=== PATIENT | male | born 1990 | race Caucasian/White ===

== ENCOUNTER → 2018-08-30 21:48 | Outpatient (CLI) | payer SELFPAY ==
[2018-08-31 14:37] LABS: Urine N gonorrhoeae NOT DETECTED
[2018-08-31 15:09] LABS: Urine Chlamydia NOT DETECTED
== END ==
PROVIDERS: Visit Provider Physician Assistant
DX: R21 Rash and other nonspecific skin eruption (principal)
CPT/HCPCS: 87491; 87591

== ENCOUNTER → 2018-08-31 10:32 | Outpatient (CLI) | payer SELFPAY ==
[2018-09-04 12:09] LABS: HSV 1 IgM Screen Negative (Negative); HSV 2 IgM Screen Negative (Negative)
== END ==
PROVIDERS: Visit Provider Physician Assistant
DX: R21 Rash and other nonspecific skin eruption (principal)
CPT/HCPCS: 36415; 86694

== ENCOUNTER 2020-10-15 19:52 | Emergency (ER) | payer OTHER, SELFPAY ==
[2020-10-15 20:11] VITALS: BP 142/81; PULSE 76; RESP 16; TEMP 36; O2SAT 97; BMI 25.1
[2020-10-15] MEDS: ERYTHROMYCIN OPHTH 1 GM OINT 1 APPLIC EYE-RIGHT (20:16)
[2020-10-15] MEDS: PROPARACAINE 0.5% OPHTH SOL 1 DROPS EYE-RIGHT (20:17)
--- NOTE | 2020-10-15 20:33 | ED.GENADULT ---
HPI - General Adult General Chief complaint: Eye Problems Stated complaint: something in right eye Time Seen by Provider: 10/15/20 20:09 Source: patient Mode of arrival: Ambulatory Limitations: no limitations History of Present Illness HPI narrative: Patient is an otherwise healthy 30-year-old male here for evaluation which he states is something in his right eye. He was sitting at home when he noticed some irritation in his right eye. He went to look in the mere insult something in his eye. He tried to taken out at home but could not. He does not know what is in his eye. 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 Related Data Allergies Allergy/AdvReac Type Severity Reaction Status Date / Time No Known Drug Allergies Allergy Verified 10/15/20 20:15 Patient History Medical History Bursitis Social History Smoking Status: Never smoker alcohol intake: current Smoking Status: Never smoker alcohol intake frequency: a few times a week Substance Use Type: does not use Exam Initial Vital Signs Initial Vital Signs: Vital Signs Temperature 96.8 F L 10/15/20 20:11 Pulse Rate 76 10/15/20 20:11 Respiratory Rate 16 10/15/20 20:11 Blood Pressure 142/81 H 10/15/20 20:11 Pulse Oximetry 97 10/15/20 20:11 Const General: cooperative, comfortable and well developed Limitations: mental status not altered HENMT Head: normal to inspection and normocephalic Eyes General: appearance normal, both eyes and all related structures Alignment and Position: alignment normal Eyelids: eyelids normal Conjunctivae: conjunctivae normal Sclera: sclerae normal Cornea: corneas abnormal on the right foreign body other (Appears to be a mynor of paint) Pupils: PERRL Resp Effort & Inspection: normal respiratory effort Skin Lesions: no lesions Rashes: no rashes Neuro General: patient alert, patient awake and patient oriented x3 Extrem General: normal to inspection and capillary refill normal Procedures Foreign Body EYE Time Out performed: No Location: eye (R) Topical anesthetic used: proparacaine Foreign body: other Evidence of corneal penetration: No Technique: cotton tip swab and needle Procedure performed under: slit-lamp Post-procedure medication: ophthalmic antibiotic Patient tolerated procedure: well and no complications Course Orders Ordered: Discontinued Medications Erythromycin (Erythromycin Ophth 1 Gm Oint) 1 applic EYE-RIGHT NOW ONE Stop: 10/15/20 20:12 Last Admin: 10/15/20 20:16 Dose: 1 applic Documented by: WANDA Proparacaine HCl (Proparacaine 0.5% Ophth Leela) 1 drops EYE-RIGHT NOW ONE Stop: 10/15/20 20:12 Last Admin: 10/15/20 20:17 Dose: 1 1000units Documented by: WANDA Vital Signs Vital signs: Vital Signs - 8 hr 10/15/20 20:11 Temperature 96.8 F L Pulse Rate 76 Respiratory Rate 16 Blood Pressure 142/81 H Pulse Oximetry 97 Medical Decision Making MDM Narrative Medical decision making narrative: The foreign body was easily visualized that the 9 o'clock position of the right eye. Initial attempt with a content applicator was unable to remove it. I then used a slit lamp and a needle however the foreign body was not adhered to the cornea. It was then easily removed with a moistened cotton tip applicator under visualization of the slit lamp. There are no signs of corneal abrasions afterwards. He was placed on antibiotic ointment. He is given return precautions and follow-up instructions. He expressed understanding and agreement. Discharge Plan Departure Patient Disposition: Home Clinical Impression: Foreign body in eye Qualifiers: Encounter type: initial encounter Laterality: right Qualified Code(s): T15.91XA - Foreign body on external eye, part unspecified, right eye, initial encounter Instructions: DI for Corneal Foreign Body-Eye Activity Restrictions/Additional Instructions: Use the antibiotic ointment 1 more time this evening and 3 times tomorrow like we discussed. Return to the emergency department for any new or worsening symptoms Referrals: Miscellaneous,DoctorMD [Primary Care Provider] -
== END 2020-10-15 20:51 | disposition home or self-care (01) ==
PROVIDERS: Emergency Provider Emergency Medicine
DX: T15.91XA Foreign body on external eye, part unspecified, right eye, initial encounter (principal)
CPT/HCPCS: 65205; 99281; 99283